=== PATIENT | male | born 2000 | race Caucasian/White ===

== ENCOUNTER → 2021-03-19 12:40 | Outpatient (CLI) | payer BC, SELFPAY ==
[2021-03-19 14:11] LABS: COVID19 -Nasal RAPID Negative (Negative)
== END ==
PROVIDERS: Visit Provider Physician Assistant
DX: Z20.822 Contact with and (suspected) exposure to COVID-19 (principal); R05 Cough; R06.7 Sneezing
CPT/HCPCS: 87635